=== PATIENT | female | born 1940 | race Caucasian/White ===

== ENCOUNTER 2017-01-25 13:50 | Day surgery (SDC) | payer MEDICARE ==
[~2017-01-25] VITALS: Ht 160 cm; Wt 70.3 kg
[~2017-01-25 13:50] MED LIST: 0.9% Sodium Chloride 1,000 ML IV SCH; ASPI-973 PO; ATOR20TA PO; CARV3.122 PO; CLOP75TA28 PO; LISI2.5T PO; MULT-666 PO; NITR0.4T6 SL; Sodium Chloride LOK Flush 10 mL Syringe IV PRN; fentaNYL-PF 50 mCg/mL 2 mL Inj IVPUSH PRN
[2017-01-25 14:16] VITALS: BP 134/76; PULSE 63; RESP 16; O2SAT 97
[2017-01-25] MEDS ORDERED: Lactated Ringer's 1,000 ML IV ONE (15:08)
[2017-01-25 15:24] VITALS: BP 121/64; PULSE 59; RESP 14; O2SAT 99
[2017-01-25 15:33] VITALS: BP 123/75; PULSE 62; RESP 14; O2SAT 99
--- NOTE | 2017-01-25 21:49 | ENDO ---
[address] [address] ENDOSCOPY PROCEDURE PATIENT: KIA BARILLAS : 1940 MR#: [id number] ADMIT: 01/25/2017 JOB ID: [id number] DATE OF SERVICE: 01/25/2017 PRIMARY PROVIDER: Russ Singletary MD. PROCEDURE: 1. Colonoscopy. 2. Hot snare polypectomy. 3. Cold forceps polypectomy. INDICATIONS: A 76-year-old female with a family history of colon cancer reporting for screening. EQUIPMENT: PCF H 180 AL. SEDATION: 1 mg Versed and 25 mcg fentanyl. COMPLICATIONS: None identified. BOWEL PREPARATION: Fair, adequate exam. PROCEDURE IN DETAIL: After the risks and benefits were explained, written and verbal informed consent was obtained. The patient was brought into the endoscopy suite and placed into the left lateral decubitus position. Sedation was achieved as above. A digital rectal examination accomplished. No significant pathology appreciated. The scope was introduced into the rectum and advanced to the cecum as identified by the appendiceal orifice and ileocecal valve. The scope was slowly withdrawn to carefully examine the mucosa for any defects or lesions. Multiple direct views were made through the dentate line for exclusion of pathology. The colon was decompressed. The scope removed from the patient who tolerated the procedure well. FINDINGS: Some moderate diverticula were seen in the left colon. There was a very diminutive polyp in the ascending colon removed with cold forceps. Immediately adjacent the appendiceal orifice at the cecum, there was a flat, perhaps up to 5 or 6 mm polyp that was removed with a combination of cold and brief applications of hot snare. This was removed in one piece. No hemorrhagic complications. It was retrieved. ENDOSCOPIC DIAGNOSES: 1. Diverticulosis. 2. Colon polyps. 3. Mild internal hemorrhoids. RECOMMENDATIONS: 1. Await histopathology. 2. Repeat colonoscopy in five years. 3. Okay to continue aspirin. 4. I would hold off on restarting Plavix for another four or five days.
--- NOTE | 2017-01-27 15:55 | PATH ---
SURGICAL PATHOLOGY Attending Physician:Zakia Wyman CASE STATUS: Signed Out PATIENT NAME: KIA BARILLAS PID: [id number] : 1940 DATE COLLECTED:01/25/2017 00:00 SPECIMEN: 1: Colon, Polyp 2: Colon, Polyp CLINICAL HISTORY: 1). APPENDICEAL ORIFICE POLYP 2). COLON POLYP FINAL DIAGNOSIS: 1.APPENDICEAL ORIFICE, POLYP, BIOPSY: SERRATED POLYP, FAVOR SESSILE SERRATED ADENOMA. 2.COLON POLYP, BIOPSY: TUBULAR ADENOMA. ICD10 D12.6 GROSS DESCRIPTION: The specimen is received in two formalin filled containers labeled with the patient's name. 1). The specimen is labeled "appendiceal orifice polyp" and consists of 3 portions of tissue which aggregate to 0.3 x 0.3 x 0.2 CM. The specimen is entirely submitted in cassette 1A. 2). The specimen is labeled "colon polyp" and consists of a 0.2 x 0.2 x 0.2 CM portion of tissue which is entirely submitted in cassette 2A. 01/26/2017DC MICRO DESCRIPTION: See diagnosis. ICD-9 CODES: CPT CODES: 1: 36156 2: 21706 Electronically Signed Out Clint Rivera MD, Ph.D. [facility]ology [facility] [address], [place] [address] Technical component performed at [facility], [facility] [address], [place], [address]
== END 2017-01-25 23:59 | disposition home or self-care (01) ==
LOC: END 13:50
PROVIDERS: ATTEND Internal Medicine Gastroenterology
DX: Z12.11 Encounter for screening for malignant neoplasm of colon (principal); Z80.0 Family history of malignant neoplasm of digestive organs; D12.2 Benign neoplasm of ascending colon; D12.0 Benign neoplasm of cecum; K57.30 Diverticulosis of large intestine without perforation or abscess without bleeding; K64.8 Other hemorrhoids; I25.10 Atherosclerotic heart disease of native coronary artery without angina pectoris; E78.5 Hyperlipidemia, unspecified; R73.09 Other abnormal glucose; M81.0 Age-related osteoporosis without current pathological fracture; G47.33 Obstructive sleep apnea (adult) (pediatric); I25.2 Old myocardial infarction; Z79.82 Long term (current) use of aspirin; Z79.02 Long term (current) use of antithrombotics/antiplatelets; Z95.5 Presence of coronary angioplasty implant and graft
CPT/HCPCS: 45380; 45385; 99153; G0500; J2250; J3010; J7120